=== PATIENT | male | born 1955 | race Two or more races ===

== ENCOUNTER 2025-02-05 16:30 | Inpatient (IN) | payer OTHER, MEDICARE ==
[~2025-02-05] VITALS: Ht 172.7 cm; Wt 94.0 kg
[2025-02-05 17:33] LABS: Hematocrit 43.3 % (41.0-53.0); Hemoglobin 15.1 g/dL (13.5-17.5); Mean Corpuscular Hemoglobin 31.8 pg (28.0-32.0); Mean Corpuscular Volume 91.0 fL (80.0-100.0); Nucleated Red Blood Cells % 0.0 %
[2025-02-05 17:40] LABS: Chloride 105 mmol/L (98-107); Potassium 4.2 mmol/L (3.5-5.1); Sodium 142 mmol/L (136-145)
[2025-02-05 17:41] LABS: Anion Gap 8 (5-15); Carbon Dioxide 29 mmol/L (20-31)
[2025-02-05 17:42] LABS: Calcium 9.9 mg/dL (8.7-10.4)
[2025-02-05 17:46] LABS: BUN/Creatinine Ratio 16.5 (10.0-20.0); Blood Urea Nitrogen 17 mg/dL (9-23)
--- NOTE | 2025-02-05 17:50 | DVH ---
CHEST RADIOGRAPH Indication: syncope Technique: Single frontal view of the chest was obtained Comparison: None FINDINGS: Lines and Tubes: None Lungs: No focal consolidation. Pleura: No effusion. No pneumothorax. Cardiomediastinal contours: Unremarkable Bones: No acute osseous abnormality. IMPRESSION: 1. No acute cardiopulmonary disease.
--- NOTE | 2025-02-05 17:54 | DVH ---
CLINICAL HISTORY: syncope TECHNIQUE: Helical scanning was performed of the head from the skull base to the vertex. Multiplanar reconstructions were performed. This exam was performed according to our departmental dose optimizat ion program. Up-to-date CT equipment and radiation dose reduction techniques are utilized as appropri ate. CTDI 62.2 DLP 1243 COMPARISON: None FINDINGS: There is no evidence for acute intracranial hemorrhage, acute ischemic changes, mass, mass effect, or extra-axial fluid collection. There is no hydrocephalus or midline shift. There is no effacement of the cerebral sulci and basal subarachnoid cisterns. The cox-white matter differentiation is well sasha ntained. The imaged paranasal sinuses are clear. IMPRESSION: NO ACUTE INTRACRANIAL ABNORMALITY SEEN.
--- NOTE | 2025-02-05 17:58 | ED.PDOC ---
HPI Comments This is a 70 year old male SRINIVASAA presenting to the ED with chief complaint of syncopal episode. EMS reports that the patient had been kneeling for an extended period of time at home, but when getting up an hour ago, he felt lightheaded and then passed out, falling backwards. Patient relays that he woke up on the floor with a right sided headache and called 911 for assistance. Patient denies any SOB, chest pain, dizziness, N/V, or further injury. Chief Complaint: Syncope Time Seen by MD: 17:00 Reviewed Notes: Nurses Notes, Database Analyst Notes, Medications, Allergies Allergies: Coded Allergies: NO KNOWN ALLERGIES (Unverified , 02/05/25) Information Source: Patient, Emergency Med Personnel Mode of Arrival: EMS Severity: Moderate Timing: Hours Duration: Since onset Prehospital treatment: None Associated Signs and Symptoms: Syncope Past Medical History PAST MEDICAL HISTORY: Denies Surgical History: Denies all surgeries Family History Family History: Reviewed,noncontributory to illness Social History Smoker: Non-Smoker Alcohol: Denies ETOH Use Drugs: Denies Drug Use Lives In: Home Constitutional: denies: chills, diaphoresis, fatigue, fever, malaise, sweats, weakness, others EENTM: denies: blurred vision, double vision, ear bleeding, ear discharge, ear drainage, ear pain, ear ringing, eye pain, eye redness, hearing loss, mouth pain, mouth swelling, nasal discharge, nose bleeding, nose congestion, nose pain, photophobia, tearing, throat pain, throat swelling, voice changes, others Respiratory: denies: cough, hemoptysis, orthopnea, SOB at rest, shortness of breath, SOB with excertion, stridor, wheezing, others Cardiovascular: reports: syncope; denies: chest pain, dizzy spells, diaphoresis, Dyspnea on exertion, edema, irregular heart beat, left arm pain, lightheadedness, palpitations, PND, others Gastrointestinal: denies: abdomen distended, abdominal pain, blood streaked bowels, constipated, diarrhea, dysphagia, difficulty swallowing, hematemesis, melena, nausea, poor appetite, poor fluid intake, rectal bleeding, rectal pain, vomiting, others Genitourinary: denies: burning, dysuria, flank pain, frequency, hematuria, incontinence, penile discharge, penile sore, pain, testicle pain, testicle swelling, urgency, others Neurological: reports: headache; denies: dizziness, fainting, left sided numbness, left sided weakness, numbness, paresthesia, pre-existing deficit, right sided numbness, right sided weakness, seizure, speech problems, tingling, tremors, weakness, others Musculoskeletal: denies: back pain, gout, joint pain, joint swelling, muscle pain, muscle stiffness, neck pain, others Integumetry: denies: bruises, change in color, change in hair/nails, dryness, laceration, lesions, lumps, rash, wounds, others Allergic/Immunocompromised: denies: Difficulty Healing, Frequent Infections, Hives, Itching, others Hematologic/Lymphatic: denies: anemia, blood clots, easy bleeding, easy bruising, swollen glands, others Endocrine: denies: excessive hunger, excessive sweating, excessive thirst, excessive urination, flushing, intolerance to cold, intolerance to heat, unexplained weight gain, unexplained weight loss, others Psychiatric: denies: anxiety, bipolar disorder, depression, hopeless, panic disorder, schizophrenia, sleepless, suicidal, others All Other Systems: Reviewed and Negative Physical Exam General Appearance: No Apparent Distress, Normal HEENT: Normal ENT Inspection, Pharynx Normal, TMs Normal Neck: Full Range of Motion, Non-Tender, Normal, Normal Inspection Respiratory: Chest Non-Tender, Lungs Clear, No Accessory Muscle Use, No Respiratory Distress, Normal Breath Sounds Cardiovascular: No Edema, No JVD, No Murmur, No Gallop, Normal Peripheral Pulses, Regular Rate/Rhythm Breast Exam: Deferred Gastrointestinal: No Organomegaly, Non Tender, No Pulsatile Mass, Normal Bowel Sounds, Soft Genitalia: Deferred Pelvic: Deferred Rectal: Deferred Extremities: No calf tenderness, Normal capillary refill, Normal inspection, Normal range of motion, Non-tender, No pedal edema Musculoskeletal : Apperance: Normal Neurologic: Alert, plate maker II-XII nml as Tested, No Motor Deficits, Normal Affect, Normal Mood, No Sensory Deficits Cerebellar Function: Normal Reflexes: Normal Skin: Dry, Normal Color, Warm Lymphatic: No Adenopathy Was a procedure done? Was a procedure done?: No CP Differential Dx Differential Diagnosis: MAT, TN, PAC's Differential Diagnosis: HTN Essential, HTN Accelerated Differential Diagnosis: Chest Wall Pain, Cholelithiasis, Gastritis, Myocardial Infarction, Pericarditis X-Ray, Labs, Meds, VS Vital Signs Date Time Temp Pulse Resp B/P (MAP) Pulse Ox O2 Delivery O2 Flow Rate FiO2 02/05/25 16:40 73 02/05/25 16:35 98.1 88 18 131/87 100 98.1 Lab Test 02/05/25 18:20 02/05/25 18:00 02/05/25 17:16 Range/Units Troponin I High Sensitivity 3 L 3 L </=54 ng/L Urine Color Yellow Yellow Urine Clarity Clear Clear Urine pH 5.5 5.0-9.0 Urine Specific [place] 1.025 1.001-1.035 Urine Protein Negative Negative Urine Ketones 1+ H Negative Urine Blood Negative Negative /uL Urine Nitrite Negative Negative Urine Bilirubin Negative Negative Urine Urobilinogen Normal Negative mg/dL Urine Leukocyte Esterase Negative Negative /uL Urine RBC 1 0 - 3 /hpf Urine Microscopic WBC 2 0-3 /HPF Urine Squamous Epithelial Cells None seen <5 /hpf Urine Bacteria None seen None Seen /hpf Urine Hyaline Casts Few 0 - 2 /lpf Urine Mucus Few None Seen Urine Glucose Normal Normal mg/dL White Blood Count 6.0 4.4-10.8 10^3/uL Red Blood Count 4.75 4.5-5.90 10^6/uL Hemoglobin 15.1 13.5-17.5 g/dL Hematocrit 43.3 41.0-53.0 % Mean Corpuscular Volume 91.0 80.0-100.0 fL Mean Corpuscular Hemoglobin 31.8 28.0-32.0 pg Mean Corpuscular Hemoglobin Concent 34.9 32.0-36.0 g/dL Red Cell Distribution Width 13.1 11.8-14.3 % Platelet Count 159 140-450 10^3/uL Mean Platelet Volume 7.5 6.9-10.8 fL Neutrophils (%) (Auto) 64.2 37.0-80.0 % Lymphocytes (%) (Auto) 22.8 10.0-50.0 % Monocytes (%) (Auto) 11.5 0.0-12.0 % Eosinophils (%) (Auto) 1.0 0.0-7.0 % Basophils (%) (Auto) 0.5 0.0-2.0 % Neutrophils # (Auto) 3.8 1.6-8.6 10 ^3/uL Lymphocytes # (Auto) 1.4 0.4-5.4 10 ^3/uL Monocytes # (Auto) 0.7 0-1.3 10 ^3/uL Eosinophils # (Auto) 0.1 0-0.8 10 ^3/uL Basophils # (Auto) 0 0-0.2 10 ^3/uL Nucleated Red Blood Cells 0.0 % Sodium Level 142 136-145 mmol/L Potassium Level 4.2 3.5-5.1 mmol/L Chloride Level 105 98-107 mmol/L Carbon Dioxide Level 29 20-31 mmol/L Anion Gap 8 5-15 Blood Urea Nitrogen 17 9-23 mg/dL Creatinine 1.03 0.700-1.30 mg/dL Glomerular Filtration Rate Calc 78 >90 mL/min BUN/Creatinine Ratio 16.5 10.0-20.0 Serum Glucose 110 H 74-106 mg/dL Calcium Level 9.9 8.7-10.4 mg/dL Time of 1ST Reevaluation: 18:00 Reevaluation 1ST: Unchanged Patient Education/Counseling: Diagnosis, Treatment Family Education/Counseling: No Family Present SEPSIS Sepsis Screen Date sepsis recognized/suspect: Feb 05, 2025 Time Sepsis recognized/suspect: 1626 Recent Procedure: No On Antibiotic Therapy: No Respiratory Rate >20: No Heart Rate >90: No Temp<36 C (96.8 F) or >38.3 C: No SBP <90 or MAP <65 mmHG: No New Acute Mental Status Change: No Is the patient on CPAP, BIPAP,: No Physician Orders Electrocardigram (02/05/25 16:43) Chest Portable (02/05/25 16:56) Head Without Contrast (02/05/25 16:56) Electrocardigram (02/05/25 16:56) Troponin-I Hs (02/05/25 19:56) Electrocardigram (02/05/25 17:56) Electrocardigram (02/05/25 19:56) Vital Signs Date Time Temp Pulse Resp B/P (MAP) Pulse Ox O2 Delivery O2 Flow Rate FiO2 02/05/25 16:40 73 02/05/25 16:35 98.1 88 18 131/87 100 98.1 Laboratory Tests Test 02/05/25 17:16 White Blood Count 6.0 10^3/uL (4.4-10.8) Departure 1 Departure Time of Disposition: 19:08 (Patient presented with syncope today and should be admitted. Data: 1. I ordered and reviewed the result of at least 3 labs including a CBC, BMP, and troponin. 2. I independently interpreted the following tests: EKG which shows a sinus arrhythmia and a chest x-ray which shows benign chest and a CT head which shows benign brain.Risk:This patient has a high risk of morbidity due to further diagnostic testing or treatment and may suffer from an acute cardiac, neurologic, or infectious disorder. Rationale: Patient should be admitted to the hospital for further management.) Impression: Primary Impression: Syncope and collapse Disposition: ADMITTED INPATIENT Admit to: Med Surg Condition: Serious Critical Care Note Critical Care Time?: No Stability Stability form required: No Heart Score Heart Score: Heart Score Response (Comments) Value History Highly Suspicious 2 EKG Normal 0 Age >65 2 Risk Factors No known risk factors 0 Troponin Normal limit 0 Total 4 I personally scribed for LUIS CHEN MD ([email or web address]) on 02/05/25 at 17:58. Electronically submitted by Tony Oneal ([email or web address]). LUIS CHEN MD Feb 05, 2025 17:58
[2025-02-05 18:37] LABS: Glucose 110 mg/dL (74-106)
[2025-02-05 18:54] LABS: Urine Protein, UAD Negative (Negative)
[2025-02-05] MEDS ORDERED: ONDANSETRON HCL 4 MG/2 ML VIAL IV PRN (22:30)
[2025-02-05] MEDS ORDERED: DOCUSATE SOD 100 MG CAP PO PRN (22:30)
[2025-02-05] MEDS ORDERED: ACETAMINOPHEN 325 MG TAB PO PRN (22:30)
--- NOTE | 2025-02-05 23:43 | DVHHP2 ---
History of Present Illness Reason for Visit: Syncope History of Present Illness The patient is a 70-year-old male who denies past medical history presented to [facility] ED with complaint of syncopal episode. As reported by EMS, the patient has been kneeling for an extended period of time at home, when he was trying to get up an hour later, he felt lightheadedness and then passed out, falling backwards. Patient reports that he woke up on the floor with right- sided headache and called 911 for assistance. Patient was seen and evaluated in the ED, laboratory data shows WBC 6.0, platelets 159, sodium 142, potassium 4.2, BUN 17, creatinine 1.03, glucose 110, calcium 9.9, troponin 3, blood pressure 131/87, heart rate 88, temperature 98.1 F, O2 saturation 99% on room air. Head CT showed no acute intracranial abnormality. Please see medication orders section in the computer. On my assessment, patient denied chest pain, no headache, no dizziness, no diaphoresis, no shortness of breaths, no loss of consciousness, no abdominal pain, no nausea, no vomiting, no fever, no chills. Patient was admitted for further evaluation and medical management. Past Medical History Denies past medical history Past Surgical History Denies all surgeries Family History Reviewed, noncontributory to the management of this case. Past Social History The patient lives at home, denies smoking, alcohol or illicit drugs abuse. Review of Systems Constitutional: Yes: Weakness; No: Fever, Chills, Sweats, Malaise, Other Eyes: No: Pain, Vision change, Conjunctivae inflammation, Eyelid inflammation, Other, Redness ENT: No: Ear pain, Ear discharge, Nose pain, Nose discharge, Nose congestion, Mouth pain, Mouth swelling, Throat pain, Throat swelling, Other Respiratory: No: Cough, Dry, Shortness of breath, SOB with excertion, Wheezing, Hemoptysis, Pleuritic Pain, Sputum, Wheezing, Other Cardiovascular: Other (Syncope); No: Chest Pain, Palpitations, Orthopnea, Paroxysmal Noc. Dyspnea, Edema, Lt Headedness Gastrointestinal: No: Nausea, Vomiting, Abdominal Pain, Diarrhea, Constipation, Melena, Hematochezia, Other Genitourinary: No Dysuria, No Frequency, No Incontinence, No Hematuria, No Retention, No Other Musculoskeletal: No: other, neck pain, shoulder pain, arm pain, back pain, hand pain, leg pain, foot pain Skin: No: Rash, Lesions, Jaundice, Bruising, Other Neurological: Other (Headache); No: Weakness, Numbness, Incoordination, Change in speech, Confusion, Seizures Allergies: Coded Allergies: NO KNOWN ALLERGIES (Unverified , 02/05/25) Medications Current Medications Medications Dose Ordered Sig/Zhao Route Start Time Stop Time Status Last Admin Dose Admin Sodium Chloride 10 ml Q8HR IV 02/06/25 06:00 Acetaminophen/ Hydrocodone Bitart 1 tab Q4HP PRN PO 02/05/25 22:30 Ondansetron HCl 4 mg Q4HP PRN IV 02/05/25 22:30 Docusate Sodium 100 mg BIDPRN PRN PO 02/05/25 22:30 Acetaminophen 650 mg Q6HP PRN PO 02/05/25 22:30 Exam Vital Signs Vital Signs Date Time Temp Pulse Resp B/P (MAP) Pulse Ox O2 Delivery O2 Flow Rate FiO2 02/05/25 16:40 73 02/05/25 16:35 98.1 18 131/87 100 98.1 General Appearance: Alert, Oriented X3, Cooperative, No acute distress HEENT: Atraumatic, PERRLA, EOMI, Mucous membr. moist/pink Respiratory: Normal air movement Cardiovascular: Regular rate, Normal S1, Normal S2, No murmurs Abdominal: Normal bowel sounds, Soft, No tenderness, No hepatospenomegaly, No masses Extremities: No cyanosis, No edema, Normal pulses, No tenderness/swelling Skin: No rashes, No breakdown, No significant lesion Neuro: Normal speech, Normal tone, Sensation intact, Cranial nerves 3-12 NL, Reflexes 2+, Other (Generalized weakness) Psych/Mental Status: Mental status NL, Mood NL Labs/Xrays Labs Test 02/05/25 20:01 02/05/25 18:00 02/05/25 17:16 Range/Units Troponin I High Sensitivity < 3 L </=54 ng/L Urine Color Yellow Yellow Urine Clarity Clear Clear Urine pH 5.5 5.0-9.0 Urine Specific [place] 1.025 1.001-1.035 Urine Protein Negative Negative Urine Ketones 1+ H Negative Urine Blood Negative Negative /uL Urine Nitrite Negative Negative Urine Bilirubin Negative Negative Urine Urobilinogen Normal Negative mg/dL Urine Leukocyte Esterase Negative Negative /uL Urine RBC 1 0 - 3 /hpf Urine Microscopic WBC 2 0-3 /HPF Urine Squamous Epithelial Cells None seen <5 /hpf Urine Bacteria None seen None Seen /hpf Urine Hyaline Casts Few 0 - 2 /lpf Urine Mucus Few None Seen Urine Glucose Normal Normal mg/dL White Blood Count 6.0 4.4-10.8 10^3/uL Red Blood Count 4.75 4.5-5.90 10^6/uL Hemoglobin 15.1 13.5-17.5 g/dL Hematocrit 43.3 41.0-53.0 % Mean Corpuscular Volume 91.0 80.0-100.0 fL Mean Corpuscular Hemoglobin 31.8 28.0-32.0 pg Mean Corpuscular Hemoglobin Concent 34.9 32.0-36.0 g/dL Red Cell Distribution Width 13.1 11.8-14.3 % Platelet Count 159 140-450 10^3/uL Mean Platelet Volume 7.5 6.9-10.8 fL Neutrophils (%) (Auto) 64.2 37.0-80.0 % Lymphocytes (%) (Auto) 22.8 10.0-50.0 % Monocytes (%) (Auto) 11.5 0.0-12.0 % Eosinophils (%) (Auto) 1.0 0.0-7.0 % Basophils (%) (Auto) 0.5 0.0-2.0 % Neutrophils # (Auto) 3.8 1.6-8.6 10 ^3/uL Lymphocytes # (Auto) 1.4 0.4-5.4 10 ^3/uL Monocytes # (Auto) 0.7 0-1.3 10 ^3/uL Eosinophils # (Auto) 0.1 0-0.8 10 ^3/uL Basophils # (Auto) 0 0-0.2 10 ^3/uL Nucleated Red Blood Cells 0.0 % Sodium Level 142 136-145 mmol/L Potassium Level 4.2 3.5-5.1 mmol/L Chloride Level 105 98-107 mmol/L Carbon Dioxide Level 29 20-31 mmol/L Anion Gap 8 5-15 Blood Urea Nitrogen 17 9-23 mg/dL Creatinine 1.03 0.700-1.30 mg/dL Glomerular Filtration Rate Calc 78 >90 mL/min BUN/Creatinine Ratio 16.5 10.0-20.0 Serum Glucose 110 H 74-106 mg/dL Calcium Level 9.9 8.7-10.4 mg/dL PATIENT: JOSELIN COBIAN ACCT: [id number] UNIT: [id number] : 1955 LOC: ER ROOM / BED: / AGE / SEX: 70 / M ADM STATUS: REG ER SERVICE 0911 ORDERING PHYSICIAN: LUIS CHEN MD PROCEDURE(s): HWOCT - HEAD WITHOUT CONTRAST REASON: syncope ORDER NUMBER(s): [id number], ACCESSION NUMBER(s): [id number] CLINICAL HISTORY: syncope TECHNIQUE: Helical scanning was performed of the head from the skull base to the vertex. Multiplanar reconstructions were performed. This exam was performed according to our departmental dose optimization program. Up-to-date CT equipment and radiation dose reduction techniques are utilized as appropriate. CTDI 62.2 DLP 1243 COMPARISON: None FINDINGS: There is no evidence for acute intracranial hemorrhage, acute ischemic changes, mass, mass effect, or extra-axial fluid collection. There is no hydrocephalus or midline shift. There is no effacement of the cerebral sulci and basal subarachnoid cisterns. The cox-white matter differentiation is well maintained. The imaged paranasal sinuses are clear. IMPRESSION: NO ACUTE INTRACRANIAL ABNORMALITY SEEN. ORDERING PHYSICIAN: LUIS CHEN MD PROCEDURE(s): CXRP - CHEST PORTABLE REASON: syncope ORDER NUMBER(s): [id number], ACCESSION NUMBER(s): [id number] CHEST RADIOGRAPH Indication: syncope Technique: Single frontal view of the chest was obtained Comparison: None FINDINGS: Lines and Tubes: None Lungs: No focal consolidation. Pleura: No effusion. No pneumothorax. Cardiomediastinal contours: Unremarkable Bones: No acute osseous abnormality. IMPRESSION: 1. No acute cardiopulmonary disease. SEPSIS Sepsis Screen Date sepsis recognized/suspect: Feb 05, 2025 Time Sepsis recognized/suspect: 1626 Recent Procedure: No On Antibiotic Therapy: No Respiratory Rate >20: No Heart Rate >90: No Temp<36 C (96.8 F) or >38.3 C: No SBP <90 or MAP <65 mmHG: No New Acute Mental Status Change: No Is the patient on CPAP, BIPAP,: No Physician Orders Electrocardigram (02/05/25 16:43) Chest Portable (02/05/25 16:56) Head Without Contrast (02/05/25 16:56) Electrocardigram (02/05/25 16:56) Electrocardigram (02/05/25 17:56) Electrocardigram (02/05/25 19:56) Allergies (02/05/25 22:19) Code Status (02/05/25 22:19) Sodium Chloride Lock (Saline Lock Ns) (02/06/25 06:00) Oxygen Per Hour (02/05/25 22:19) Hydrocodone-Acet 5/325mg Tab ([place] 5/32 (02/05/25 22:30) Ondansetron Hcl (Zofran) (02/05/25 22:30) Docusate Sodium Capsule (Colace Capsule) (02/05/25 22:30) Fall Risk Precautions In Place QSHIFT (02/05/25 22:19) Complete Blood Count (02/06/25 04:00) Comprehensive Metabolic Panel (02/06/25 04:00) Cardiac Diet-2gna,Lofat,Lochol (02/06/25 Breakfast) Condition: Serious (02/05/25 22:19) Acetaminophen Tablet (Tylenol Tablet) (02/05/25 22:30) Maintain Bed Rest (02/05/25 22:19) Sequential Compression Device (02/05/25 ) Vital Signs Date Time Temp Pulse Resp B/P (MAP) Pulse Ox O2 Delivery O2 Flow Rate FiO2 02/05/25 16:40 73 02/05/25 16:35 98.1 88 18 131/87 100 98.1 Laboratory Tests Test 02/05/25 17:16 White Blood Count 6.0 10^3/uL (4.4-10.8) Assessment/Plan Assessment/Plan Syncope and collapse Generalized weakness Plan 1. Admit to telemetry unit 2. Breathing treatment 3. Pain control management 4. Management of fluids and electrolytes 5. Consultation for hospitalist 6. Diagnostic tests head CT 7. DVT prophylaxis on SCDs 8. Repeat labs CBC, CMP in a.m. 9. Continue with current medical management 10. Treatment plan discussed with patient and RN. Patient verbalized understanding. Plan discussed with: Patient, Other (RN) My Orders Orders - NEELA MINER DNP Procedure Category Date Status Time Allergies ANDERSON 02/05/25 In Process 22:19 Code Status CODE 02/05/25 Transmitted 22:19 Sodium Chloride Lock PHA 02/06/25 In Process (Saline Lock Ns) 06:00 Oxygen Per Hour RT 02/05/25 Transmitted 22:19 Hydrocodone-Acet PHA 02/05/25 In Process 5/325mg Tab ([place] 22:30 Ondansetron Hcl PHA 02/05/25 In Process (Zofran) 22:30 Docusate Sodium PHA 02/05/25 In Process Capsule (Colace 22:30 Fall Risk Precautions ANDERSON 02/05/[address] 22:19 Complete Blood Count LAB 02/06/25 Verified 04:00 Comprehensive LAB 02/06/25 Verified Metabolic Panel 04:00 Cardiac DIET 02/06/25 Transmitted Diet-2gna,Lofat,Lochol Breakfast Condition: Serious ANDERSON 02/05/25 In Process 22:19 Acetaminophen Tablet PHA 02/05/25 In Process (Tylenol Tablet) 22:30 Maintain Bed Rest ANDERSON 02/05/25 In Process 22:19 Sequential ANDERSON 02/05/25 In Process Compression Device Problem List: (1) Syncope and collapse (2) Generalized weakness Date of Service: Feb 05, 2025 Billing Provider: NEELA MINER DNP Common Visit Codes: [id number] INP/OBS CARE (HIGH) NEELA MINER DNP Feb 05, 2025 23:43
[2025-02-05] MEDS ORDERED: MORPHINE SULFATE INJ 2 MG/ml SYRG IV PRN (23:45)
[2025-02-05] MEDS ORDERED: NITROGLYCERIN 0.4 MG SL TAB SL PRN (23:45)
[2025-02-06] VITALS (7 sets, daily range): BP systolic 112–128; BP diastolic 73–90; PULSE 57–81; RESP 16; TEMP 97.9–98.5; O2SAT 95–98
[2025-02-06] MEDS: HYDROcodone-ACET 5/325MG TAB PO PRN (03:08)
[2025-02-06] MEDS: SODIUM CHLOR 0.9% PF (SALINE LOCK) 10ML VIAL/SYR IV SCH (06:00)
[2025-02-06 06:03] LABS: Hematocrit 40.0 % (41.0-53.0); Hemoglobin 14.3 g/dL (13.5-17.5); Mean Corpuscular Hemoglobin 32.4 pg (28.0-32.0); Mean Corpuscular Volume 90.8 fL (80.0-100.0); Nucleated Red Blood Cells % 0.0 %
[2025-02-06 06:16] LABS: Alanine Aminotransferase 22 U/L (7-40); Albumin 4.3 g/dL (3.2-4.8); Alkaline Phosphatase 53 U/L (46-116); Anion Gap 7 (5-15); BUN/Creatinine Ratio 15.8 (10.0-20.0); Blood Urea Nitrogen 15 mg/dL (9-23); Calcium 9.4 mg/dL (8.7-10.4); Carbon Dioxide 30 mmol/L (20-31); Chloride 104 mmol/L (98-107); Glucose 89 mg/dL (74-106); Potassium 4.3 mmol/L (3.5-5.1); Sodium 141 mmol/L (136-145); Total Protein 6.6 g/dL (5.7-8.2)
[2025-02-06 06:17] LABS: Bilirubin, Total 0.7 mg/dL (0.2-1.0)
[2025-02-06 10:59] LABS: Hepatitis B Surface Antigen Negative (Negative); Hepatitis C Antibody Negative (Negative)
--- NOTE | 2025-02-06 11:32 | ECG ---
[facility] Test Date: 2025-02-05 Test Time: 16:36:17 Pat Name: JOSELIN COBIAN Department: Room: 0277T Gender: M [employer] Operator: MITZI : 1955 Requested By: LUIS CHEN Order Number: [id number] Reading MD: Braxton Olivares Measurements Intervals [place] Rate: 73 P: 44 FL: 193 QRS: -19 QRSD: 92 T: 22 QT: 384 QTc: 424 Interpretive Statements Sinus rhythm Borderline left axis deviation Low voltage, precordial leads Abnormal R-wave progression, early transition Electronically Signed On 02-09-2025 10:21:29 PDT by Braxton Olivares Please click the below link to view image of tracing.
--- NOTE | 2025-02-06 15:57 | DVHPN2 ---
Progress Note Date Seen: Feb 06, 2025 Medical Necessity Reason Pt with a Central, PICC or Fol: No Subjective Patient reports: Feels better Changes from previous H/P or p: No Changes Review of Systems: HEENT:Abnormal (Dizziness) Objective vital signs Vital Sign Date Time Temp Pulse Resp B/P (MAP) Pulse Ox O2 Delivery O2 Flow Rate FiO2 02/06/25 08:05 Room Air* 0 21 02/06/25 08:00 57 02/06/25 05:00 97.9 16 112/73 (86) 97 97.9 Total Intake and Output 02/05/25 02/05/25 02/06/25 15:00 23:00 07:00 Intake Total 0 ml Balance 0 ml medications Current Medications Medications Dose Ordered Sig/Zhao Route Start Time Stop Time Status Last Admin Dose Admin Sodium Chloride 10 ml Q8HR IV 02/06/25 06:00 Acetaminophen/ Hydrocodone Bitart 1 tab Q4HP PRN PO 02/05/25 22:30 02/06/25 11:50 1 TAB Ondansetron HCl 4 mg Q4HP PRN IV 02/05/25 22:30 Docusate Sodium 100 mg BIDPRN PRN PO 02/05/25 22:30 Acetaminophen 650 mg Q6HP PRN PO 02/05/25 22:30 Nitroglycerin 0.4 mg Q5MINP PRN SL 02/05/25 23:45 Morphine Sulfate 2 mg Q30M PRN IV 02/05/25 23:45 Examination: GENERAL:Normal, HEENT:Normal, LUNGS:Normal, CVS:Normal, ABDOMEN:Normal, MSK:Normal, NEURO:Abnormal (AO x3, strength and sensation intact. Persist dizziness) laboratory and microbiology Laboratory Tests 02/06/25 04:28 Test 02/06/25 04:28 Range/Units Serum Glucose 89 74-106 mg/dL Problem List/Assessment/Plan Problems(with codes): (1) Generalized weakness (2) Syncope and collapse Problem List/Assessment/Plan 1. Dizziness possible vertigo 2. Weakness CT head is negative Distended today when he was getting a he turned his head to see if he dizzy but GE feel that dizziness improved slightly Check brain MRI to rule out stroke Check echo of the heart assess for syncope Check carotid Doppler cirrhosis Neurology consult Neuro check per floor protocol Full code Lovenox for DVT prophylaxis No GI prophylaxis needed Regular diet Plan discussed with: Patient My Orders My Orders Orders - JUNIOR SCHMID MD Procedure Category Date Status Time Brain Head Wo Contrast MRI 02/06/25 Logged 15:53 Carotid Duplx W Color US 02/06/25 Logged DOP 15:53 Echo 2d Mode Cardiac US 02/06/25 Logged DOP 15:53 Neuro Checks Per Unit ORDERS 02/06/25 Transmitted Protocol 15:54 * Neurology Consult CONS 02/06/25 Transmitted 15:54 Date of Service: Feb 06, 2025 Billing Provider: JUNIOR SCHMID MD Common Visit Codes: [id number] INP/OBS CARE(HIGH) JUNIOR SCHMID MD Feb 06, 2025 15:57
[2025-02-06 16:53] LABS: Triglycerides 124.0 mg/dL (< 150)
[2025-02-06 16:54] LABS: Magnesium 2.0 mg/dL (1.6-2.6)
[2025-02-06 16:55] LABS: Cholesterol 192.0 mg/dL (< 200); HDL Cholesterol 45.0 mg/dL (40-59)
--- NOTE | 2025-02-06 17:01 | DVH ---
Ultrasound Carotid Arteries Indication: r/o stenosis Comparison: None Technique: Color and spectral Doppler waveform analysis of the bilateral carotid arteries is performe d. Measurements are based on NASCET criteria. Findings: PSV in the right CCA measures 75 cm/s. PSV in the right ICA measures 61 cm/s. The right ICA/CCA rat io is 0.8. PSV in the left CCA measures 56 cm/s. PSV in the left ICA measures 72 cm/s. The left ICA/CCA ratio is 1.3. Both vertebral arteries demonstrate antegrade flow. Impression: 1. No hemodynamically significant stenosis in either internal carotid artery. ABBREVIATIONS: PSV peak systolic velocity CCA common carotid artery ICA internal carotid artery
--- NOTE | 2025-02-06 17:39 | DVHINCON2 ---
Date Seen: Feb 06, 2025 Referring Physician MD Morales Reason for Consultation Syncope History of Present Illness This is a 70-year-old male patient who presents to the emergency room with chief complaint of syncopal episode. 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 He reports that when he went to stand up he instantly felt dizzy and the next thing he remembers is waking up on the floor. Does not know exactly how long he lost consciousness for. The patient reports hitting the back of his head. He was brought to the emergency room for further evaluation. Cardiology has been consulted at this time for syncopal episode. No twelve lead electrocardiogram seen in patient's hard chart on [facility]. Patient currently on telemetry monitoring which reveals normal sinus rhythm. Serial troponin levels have been negative. He denies any cardiac symptoms at time of assessment. Significant past medical history includes hyperlipidemia, liver cirrhosis, PTSD, anxiety, and depression. Past Medical History Past medical history reviewed. No other significant than mentioned above. Past Surgical History Cholecystectomy Liver cyst drainage Family History: Diabetes mellitus G8 MOTHER, , Onset:Unknown G8 BROTHER, Onset:Unknown G8 SISTER, Onset:Unknown Prostate carcinoma G8 BROTHER, Onset:Unknown Family History Family history reviewed. Social History Patient has a 10 pack-year history, quit smoking approximately 28 years ago Denies illicit drug use Denies alcohol use Allergies: Coded Allergies: NO KNOWN ALLERGIES (Unverified , 02/05/25) Home Meds Home medications reviewed. Current Medications Current Medications Medications (Trade) Dose Ordered Sig/Zhao Route PRN Reason Start Time Stop Time Status Last Admin Sodium Chloride (Saline Lock Ns) 10 ml Q8HR IV 02/06/25 06:00 Acetaminophen/ Hydrocodone Bitart ([place] 5/325MG Tab) 1 tab Q4HP PRN PO MODERATE PAIN (4-6 PAIN SCALE) 02/05/25 22:30 02/06/25 11:50 Ondansetron HCl (Zofran) 4 mg Q4HP PRN IV NAUSEA / VOMITING 02/05/25 22:30 Docusate Sodium (Colace Capsule) 100 mg BIDPRN PRN PO FOR CONSTIPATION 02/05/25 22:30 Acetaminophen (Tylenol Tablet) 650 mg Q6HP PRN PO PAIN SCALE 1-3 OR TEMP>100.4 02/05/25 22:30 Nitroglycerin (Ntrostat Sublingual) 0.4 mg Q5MINP PRN SL FOR CHEST PAIN 02/05/25 23:45 Morphine Sulfate 2 mg Q30M PRN IV FOR CHEST PAIN 02/05/25 23:45 Enoxaparin Sodium (Lovenox) 40 mg DAILY SC 02/07/25 10:00 Review of Systems Constitutional: No symptom reported Ears, Nose, & Throat: No symptom reported Eyes: No symptom reported Neurological: Syncope Pulmonary/Respiratory: No symptoms reported Cardiovascular: No symptom reported Gastrointestinal: No symptom reported Genitourinary: No symptom reported Musculoskeletal: No symptom reported Skin: No symptom reported Psychiatric: No symptom reported Endocrine: No symptom reported Hematologic/Lymphatic: No symptom reported Vital Signs Vital Signs Date Time Temp Pulse Resp B/P (MAP) Pulse Ox O2 Delivery O2 Flow Rate FiO2 02/06/25 08:05 Room Air* 0 21 02/06/25 08:00 57 02/06/25 05:00 97.9 16 112/73 (86) 97 97.9 Physical Exam General Appearance: Cooperative. Well-developed. Well-nourished. No acute distress. Pulmonary/Respiratory: Clear, bilateral breaths sounds. Cardiovascular/Chest: Regular rate and rhythm. Peripheral Pulses: 2+ Radial (R). 2+ Radial (L). 2+ Pedal (R). 2+ Pedal (L) Abdominal Exam: Normal bowel sounds. Ankle Exam: Negative ankle edema Lower extremities: Negative lower extremity edema Neuro/Mental Status: A/OX4, coherent. Thoughts/Psych: Normal thought pattern. Appropriate mood and affect. Good judgment and insight. Appearance: No acute distress. Skin Exam: Normal inspection. Normal color. Warm and dry. Labs/Diagnostic Data Labs Test 02/06/25 04:28 02/05/25 20:01 02/05/25 18:00 Range/Units White Blood Count 4.5 4.4-10.8 10^3/uL Red Blood Count 4.41 L 4.5-5.90 10^6/uL Hemoglobin 14.3 13.5-17.5 g/dL Hematocrit 40.0 L 41.0-53.0 % Mean Corpuscular Volume 90.8 80.0-100.0 fL Mean Corpuscular Hemoglobin 32.4 H 28.0-32.0 pg Mean Corpuscular Hemoglobin Concent 35.6 32.0-36.0 g/dL Red Cell Distribution Width 12.9 11.8-14.3 % Platelet Count 139 L 140-450 10^3/uL Mean Platelet Volume 7.5 6.9-10.8 fL Neutrophils (%) (Auto) 59.0 37.0-80.0 % Lymphocytes (%) (Auto) 25.3 10.0-50.0 % Monocytes (%) (Auto) 13.6 H 0.0-12.0 % Eosinophils (%) (Auto) 1.6 0.0-7.0 % Basophils (%) (Auto) 0.5 0.0-2.0 % Neutrophils # (Auto) 2.7 1.6-8.6 10 ^3/uL Lymphocytes # (Auto) 1.1 0.4-5.4 10 ^3/uL Monocytes # (Auto) 0.6 0-1.3 10 ^3/uL Eosinophils # (Auto) 0.1 0-0.8 10 ^3/uL Basophils # (Auto) 0 0-0.2 10 ^3/uL Nucleated Red Blood Cells 0.0 % Sodium Level 141 136-145 mmol/L Potassium Level 4.3 3.5-5.1 mmol/L Chloride Level 104 98-107 mmol/L Carbon Dioxide Level 30 20-31 mmol/L Anion Gap 7 5-15 Blood Urea Nitrogen 15 9-23 mg/dL Creatinine 0.95 0.700-1.30 mg/dL Glomerular Filtration Rate Calc 86 >90 mL/min BUN/Creatinine Ratio 15.8 10.0-20.0 Serum Glucose 89 74-106 mg/dL Hemoglobin A1c 6.3 H <5.7 % A1C Calcium Level 9.4 8.7-10.4 mg/dL Magnesium Level 2.0 1.6-2.6 mg/dL Total Bilirubin 0.7 0.2-1.0 mg/dL Aspartate Amino Transferase (AST) 39 13-40 U/L Alanine Aminotransferase (ALT) 22 7-40 U/L Alkaline Phosphatase 53 46-116 U/L Total Protein 6.6 5.7-8.2 g/dL Albumin 4.3 3.2-4.8 g/dL Triglycerides Level 124 < 150 mg/dL Cholesterol Level 192 < 200 mg/dL LDL Cholesterol 142 H < 100 mg/dL HDL Cholesterol 45 40-59 mg/dL Thyroid Stimulating Hormone (TSH) 1.62 0.55-4.78 uIU/mL Hepatitis B Surface Antigen Negative Negative Hepatitis C Antibody Negative Negative Troponin I High Sensitivity < 3 L </=54 ng/L Urine Color Yellow Yellow Urine Clarity Clear Clear Urine pH 5.5 5.0-9.0 Urine Specific [place] 1.025 1.001-1.035 Urine Protein Negative Negative Urine Ketones 1+ H Negative Urine Blood Negative Negative /uL Urine Nitrite Negative Negative Urine Bilirubin Negative Negative Urine Urobilinogen Normal Negative mg/dL Urine Leukocyte Esterase Negative Negative /uL Urine RBC 1 0 - 3 /hpf Urine Microscopic WBC 2 0-3 /HPF Urine Squamous Epithelial Cells None seen <5 /hpf Urine Bacteria None seen None Seen /hpf Urine Hyaline Casts Few 0 - 2 /lpf Urine Mucus Few None Seen Urine Glucose Normal Normal mg/dL Assessment Syncope, rule out cardiac etiology Rule out structural heart disease Hyperlipidemia Prediabetes History of lower cirrhosis History of tobacco use Obesity Plan/Recommendation We will continue with the following plan/recommendations (Dr. Franks): * Transthoracic echocardiogram to evaluate cardiac function * Bilateral carotid ultrasound * Orthostatic vital signs * Close Cardiac surveillance Thank you for allowing us to care for this patient. Please call with any questions or concerns. Critical care time spent: 44 minutes This medical document was created using an electronic medical record system with voice recognition software and computerized dictation system. Although this document has been carefully reviewed, there might still be some phonetic and typographical errors. Occasional wrong-word or ``sound-alike substitutions may have occurred due to the inherent limitations of voice recognition software. These areas are purely typographical due to imperfections of the software programs and do not reflect any compromise in the patient's medical care. Please read the chart carefully and recognize, using context, where these substitutions have occurred. Plan discussed with: Patient NYHA Physical activity limitations: NA Date of Service: Feb 06, 2025 Billing Provider: CHETAN BRIONES Cardiology Common Codes: 45394-LIMFLLF INP/OBS CARE (High) Cardiology Consultation Codes: 89193-[id number] CONSULT <45MIN CHETAN BRIONES Feb 06, 2025 17:39
--- NOTE | 2025-02-06 20:47 | DVH ---
EXAM: MRI BRAIN HEAD WO CONTRAST CLINICAL HISTORY: r/o stroke COMPARISON: CT head 02/05/2025 TECHNIQUE: Multiplanar, multisequence magnetic resonance imaging of the brain was performed after the administra tion of intravenous contrast. FINDINGS: Normal brain volume and formation. No hemorrhages, masses, mass effect, midline shift, herniation or cytotoxic edema following large vas cular territory. No intra-axial or extra-axial fluid collections. No evidence of hydrocephalus. The basal cisterns are patent. The vascular flow voids are maintained. The pituitary gland, sella and parasellar regions are unremarkable. The cerebellar tonsils are in nor mal position. The cerebellum is unremarkable. Right lens replacement. Otherwise orbits and globes are unremarkable. Minimal mucoperiosteal thicken ing of the ethmoid air cells. The remainder of the paranasal sinuses are clear. IMPRESSION: No evidence of acute intracranial abnormalities.
--- NOTE | 2025-02-06 22:32 | DVHINCON2 ---
Date of service: Feb 06, [address] Nielsen Reason for Consultation Persistent dizziness History of Present Illness Mr. Garcia is a 70 years old right-handed gentleman with a history of obesity, PTSD, anxiety, hepatitis, he was brought to the [facility] on 02/05/2025 with a chief company of syncopal event. At this time, he is alert and fully oriented, he provided the following history He has a history of dizziness spells in that he has lightheadedness, hot flushing, blurry vision when he is standing up fast. 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 This is his 1st passing out Orthostatic vitals on 02/06/2025 were unremarkable Coincidentally after the passing out on 02/05/2025, he has brief spells of dizziness/spinning sensation triggered by lying down, getting up from bed, bending/reason the head, but he has no similar symptoms on 02/06/25. He had no similar symptoms previously He snores, but not bad, he reports waking up in the night with headache in the last four months HbsAg 02/06/2025: Negative Hep C Ab, 02/06/2025: Negative CBC, 02/06/2025: Unremarkable CMP, 02/06/2025: Unremarkable TG/HDL/LDL/HDL, 02/06/2025: 124/192/142/45 TSH, 02/06/2025: 1.62 Carotid Doppler, 02/06/2025: No hemodynamically significant stenosis in either internal carotid artery. MRI head, 02/06/2025: No evidence of acute intracranial abnormalities Past Medical History Obesity, PTSD, anxiety, hepatitis Past Surgical History Cholecystectomy, liver sister drainage Family History: Diabetes mellitus G8 MOTHER, , Onset:Unknown G8 BROTHER, Onset:Unknown G8 SISTER, Onset:Unknown Prostate carcinoma G8 BROTHER, Onset:Unknown Family History Diabetes, prostatic cancer Social History He was a tobacco smoke, but denies a history of drug/alcohol abuse Allergies: Coded Allergies: NO KNOWN ALLERGIES (Unverified , 02/05/25) Current Medications Current Medications Medications (Trade) Dose Ordered Sig/Zhao Route PRN Reason Start Time Stop Time Status Last Admin Sodium Chloride (Saline Lock Ns) 10 ml Q8HR IV 02/06/25 06:00 Acetaminophen/ Hydrocodone Bitart ([place] 5/325MG Tab) 1 tab Q4HP PRN PO MODERATE PAIN (4-6 PAIN SCALE) 02/05/25 22:30 02/06/25 21:49 Ondansetron HCl (Zofran) 4 mg Q4HP PRN IV NAUSEA / VOMITING 02/05/25 22:30 Docusate Sodium (Colace Capsule) 100 mg BIDPRN PRN PO FOR CONSTIPATION 02/05/25 22:30 Acetaminophen (Tylenol Tablet) 650 mg Q6HP PRN PO PAIN SCALE 1-3 OR TEMP>100.4 02/05/25 22:30 Nitroglycerin (Ntrostat Sublingual) 0.4 mg Q5MINP PRN SL FOR CHEST PAIN 02/05/25 23:45 Morphine Sulfate 2 mg Q30M PRN IV FOR CHEST PAIN 02/05/25 23:45 Enoxaparin Sodium (Lovenox) 40 mg DAILY SC 02/07/25 10:00 Review of Systems As above, the other systems are negative Vital Signs Vital Signs Date Time Temp Pulse Resp B/P (MAP) Pulse Ox O2 Delivery O2 Flow Rate FiO2 02/06/25 21:00 98.5 75 16 112/78 (89) 95 98.5 121/83 (96) 128/90 (103) 02/06/25 08:05 Room Air* 0 21 Physical Exam GENERAL EXAM: General: the patient is well developed and nourished. No acute distress. HEENT: Normocephalic, neck is supple, no carotid bruits. No mass. RESPIRATORY: Normal respiratory effort with symmetrical lung expansion. Lungs clear to auscultation. CARDIOVASCULAR: Regular rate and rhythm with no murmurs. S1, S2. ABDOMEN: Soft, nontender, normal bowel sound NEUROLOGICAL: MENTAL STATUS: Awake and alert. Oriented to person, place, time and general circumstances. Able to give personal history. SPEECH, LANGUAGE, HIGHER CORTICAL FUNCTION: no aphasia or dysathria. CRANIAL NERVES: #2: Intact visual nava to confrontation. The optic discs were sharp. #3,4,6: Pupils are equal, round and reactive. EOMs full and conjugate. No nystagmus. #5: Facial sensation intact in all three divisions bilaterally. Mandibular strength intact. #7: Facial muscles symmetrical and strength intact. #8: Hearing grossly normal to voice. #9,10: Uvula and soft palate rise in the midline. Swallow and voice are normal. #11: Trapezius and sternomastoid strength intact bilaterally. #12: Tongue midline. No fasciculations or atrophy. SENSATION: Sensation to touch and pinprick is normal. MOTOR: Normal tone in the upper and lower extremity. Normal muscle bulk. No fasciculations. No abnormal movements or posturing. Muscle strength of the major groups in the upper extremities is 5/5. Muscle strength of the major groups in the lower extremities is 5/5. REFLEXES: Deep tendon reflexes normal and symmetrical. No pathological reflexe s. CEREBELLAR/COORDINATION: Finger to nose and heel to cobos are normal bilaterally. GAIT/STATION: deferred. Labs/Diagnostic Data Labs Test 02/06/25 04:28 02/05/25 20:01 02/05/25 18:00 Range/Units White Blood Count 4.5 4.4-10.8 10^3/uL Red Blood Count 4.41 L 4.5-5.90 10^6/uL Hemoglobin 14.3 13.5-17.5 g/dL Hematocrit 40.0 L 41.0-53.0 % Mean Corpuscular Volume 90.8 80.0-100.0 fL Mean Corpuscular Hemoglobin 32.4 H 28.0-32.0 pg Mean Corpuscular Hemoglobin Concent 35.6 32.0-36.0 g/dL Red Cell Distribution Width 12.9 11.8-14.3 % Platelet Count 139 L 140-450 10^3/uL Mean Platelet Volume 7.5 6.9-10.8 fL Neutrophils (%) (Auto) 59.0 37.0-80.0 % Lymphocytes (%) (Auto) 25.3 10.0-50.0 % Monocytes (%) (Auto) 13.6 H 0.0-12.0 % Eosinophils (%) (Auto) 1.6 0.0-7.0 % Basophils (%) (Auto) 0.5 0.0-2.0 % Neutrophils # (Auto) 2.7 1.6-8.6 10 ^3/uL Lymphocytes # (Auto) 1.1 0.4-5.4 10 ^3/uL Monocytes # (Auto) 0.6 0-1.3 10 ^3/uL Eosinophils # (Auto) 0.1 0-0.8 10 ^3/uL Basophils # (Auto) 0 0-0.2 10 ^3/uL Nucleated Red Blood Cells 0.0 % Sodium Level 141 136-145 mmol/L Potassium Level 4.3 3.5-5.1 mmol/L Chloride Level 104 98-107 mmol/L Carbon Dioxide Level 30 20-31 mmol/L Anion Gap 7 5-15 Blood Urea Nitrogen 15 9-23 mg/dL Creatinine 0.95 0.700-1.30 mg/dL Glomerular Filtration Rate Calc 86 >90 mL/min BUN/Creatinine Ratio 15.8 10.0-20.0 Serum Glucose 89 74-106 mg/dL Hemoglobin A1c 6.3 H <5.7 % A1C Calcium Level 9.4 8.7-10.4 mg/dL Magnesium Level 2.0 1.6-2.6 mg/dL Total Bilirubin 0.7 0.2-1.0 mg/dL Aspartate Amino Transferase (AST) 39 13-40 U/L Alanine Aminotransferase (ALT) 22 7-40 U/L Alkaline Phosphatase 53 46-116 U/L Total Protein 6.6 5.7-8.2 g/dL Albumin 4.3 3.2-4.8 g/dL Triglycerides Level 124 < 150 mg/dL Cholesterol Level 192 < 200 mg/dL LDL Cholesterol 142 H < 100 mg/dL HDL Cholesterol 45 40-59 mg/dL Thyroid Stimulating Hormone (TSH) 1.62 0.55-4.78 uIU/mL Hepatitis B Surface Antigen Negative Negative Hepatitis C Antibody Negative Negative Troponin I High Sensitivity < 3 L </=54 ng/L Urine Color Yellow Yellow Urine Clarity Clear Clear Urine pH 5.5 5.0-9.0 Urine Specific [place] 1.025 1.001-1.035 Urine Protein Negative Negative Urine Ketones 1+ H Negative Urine Blood Negative Negative /uL Urine Nitrite Negative Negative Urine Bilirubin Negative Negative Urine Urobilinogen Normal Negative mg/dL Urine Leukocyte Esterase Negative Negative /uL Urine RBC 1 0 - 3 /hpf Urine Microscopic WBC 2 0-3 /HPF Urine Squamous Epithelial Cells None seen <5 /hpf Urine Bacteria None seen None Seen /hpf Urine Hyaline Casts Few 0 - 2 /lpf Urine Mucus Few None Seen Urine Glucose Normal Normal mg/dL Assessment Passing out on 02/05/2025 Syncope Orthostatic hypotension Partial complex seizure, less likely Vertigo on 02/05/2025 Benign paroxysmal positional vertigo TIA/other central nervous system etiology, less likely Plan/Recommendation Monitoring Supportive treatment Telemetry Orthostatic vitals EEG MR head (unremarkable Syncope precautions Cardiology on case More recommendation per clinical course This medical document was created using an electronic medical record system with [employer] dictation system. Although this document has been carefully reviewed, there may still be some phonetic and typographical errors. These areas are purely typographical due to imperfections of the software programs, and do not reflect any compromise in the patient's medical care. Plan discussed with: Patient, Other ANANYA ALEMAN MD Feb 06, 2025 22:32
--- NOTE | 2025-02-06 23:59 | DVHINCON2 ---
Date Seen: Feb 06, 2025 Referring Physician MD Morales Reason for Consultation Syncope History of Present Illness This is a 70-year-old male with a past medical history of hyperlipidemia, liver cirrhosis, PTSD, anxiety, and depression who presents to the ED with a complaint of syncopal episode. 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 He reports that when he went to stand up he instantly felt dizzy and the next thing he remembers is waking up on the floor. Does not know exactly how long he lost consciousness for. The patient reports hitting the back of his head. He was brought to the ED for further evaluation. Cardiology has been consulted at this time for syncopal episode. No twelve lead electrocardiogram seen in patient's hard chart on [facility]. Patient currently on telemetry monitoring which reveals normal sinus rhythm. Serial troponin levels have been negative. He denies any cardiac symptoms at time of assessment. Chest x-ray shows NAD. Past Medical History past medical history reviewed. No other significant than mentioned above. Past Surgical History Cholecystectomy Liver cyst drainage Family History: Diabetes mellitus G8 MOTHER, , Onset:Unknown G8 BROTHER, Onset:Unknown G8 SISTER, Onset:Unknown Prostate carcinoma G8 BROTHER, Onset:Unknown Allergies: Coded Allergies: NO KNOWN ALLERGIES (Unverified , 02/05/25) Current Medications Current Medications Medications (Trade) Dose Ordered Sig/Zhao Route PRN Reason Start Time Stop Time Status Last Admin Sodium Chloride (Saline Lock Ns) 10 ml Q8HR IV 02/06/25 06:00 Acetaminophen/ Hydrocodone Bitart ([place] 5/325MG Tab) 1 tab Q4HP PRN PO MODERATE PAIN (4-6 PAIN SCALE) 02/05/25 22:30 02/06/25 11:50 Ondansetron HCl (Zofran) 4 mg Q4HP PRN IV NAUSEA / VOMITING 02/05/25 22:30 Docusate Sodium (Colace Capsule) 100 mg BIDPRN PRN PO FOR CONSTIPATION 02/05/25 22:30 Acetaminophen (Tylenol Tablet) 650 mg Q6HP PRN PO PAIN SCALE 1-3 OR TEMP>100.4 02/05/25 22:30 Nitroglycerin (Ntrostat Sublingual) 0.4 mg Q5MINP PRN SL FOR CHEST PAIN 02/05/25 23:45 Morphine Sulfate 2 mg Q30M PRN IV FOR CHEST PAIN 02/05/25 23:45 Enoxaparin Sodium (Lovenox) 40 mg DAILY SC 02/07/25 10:00 Review of Systems Constitutional: No symptom reported Ears, Nose, & Throat: No symptom reported Eyes: No symptom reported Neurological: Syncope Pulmonary/Respiratory: No symptoms reported Cardiovascular: No symptom reported Gastrointestinal: No symptom reported Genitourinary: No symptom reported Musculoskeletal: No symptom reported Skin: No symptom reported Psychiatric: No symptom reported Endocrine: No symptom reported Hematologic/Lymphatic: No symptom reported Vital Signs Vital Signs Date Time Temp Pulse Resp B/P (MAP) Pulse Ox O2 Delivery O2 Flow Rate FiO2 02/06/25 08:05 Room Air* 0 21 02/06/25 08:00 57 02/06/25 05:00 97.9 16 112/73 (86) 97 97.9 Physical Exam GENERAL: Alert and oriented x 3. No acute distress. EYES: PERRL, EOMI. Anicteric. HENT: Moist mucous membranes. LUNGS: Clear to auscultation bilaterally. CARDIOVASCULAR: Regular rate and rhythm. ABDOMEN: Soft, nontender and nondistended. EXTREMITIES: No edema. NEUROLOGIC: No focal neurological deficits. SKIN: Warm, dry. Labs/Diagnostic Data Labs Test 02/06/25 04:28 02/05/25 20:01 02/05/25 18:00 Range/Units White Blood Count 4.5 4.4-10.8 10^3/uL Red Blood Count 4.41 L 4.5-5.90 10^6/uL Hemoglobin 14.3 13.5-17.5 g/dL Hematocrit 40.0 L 41.0-53.0 % Mean Corpuscular Volume 90.8 80.0-100.0 fL Mean Corpuscular Hemoglobin 32.4 H 28.0-32.0 pg Mean Corpuscular Hemoglobin Concent 35.6 32.0-36.0 g/dL Red Cell Distribution Width 12.9 11.8-14.3 % Platelet Count 139 L 140-450 10^3/uL Mean Platelet Volume 7.5 6.9-10.8 fL Neutrophils (%) (Auto) 59.0 37.0-80.0 % Lymphocytes (%) (Auto) 25.3 10.0-50.0 % Monocytes (%) (Auto) 13.6 H 0.0-12.0 % Eosinophils (%) (Auto) 1.6 0.0-7.0 % Basophils (%) (Auto) 0.5 0.0-2.0 % Neutrophils # (Auto) 2.7 1.6-8.6 10 ^3/uL Lymphocytes # (Auto) 1.1 0.4-5.4 10 ^3/uL Monocytes # (Auto) 0.6 0-1.3 10 ^3/uL Eosinophils # (Auto) 0.1 0-0.8 10 ^3/uL Basophils # (Auto) 0 0-0.2 10 ^3/uL Nucleated Red Blood Cells 0.0 % Sodium Level 141 136-145 mmol/L Potassium Level 4.3 3.5-5.1 mmol/L Chloride Level 104 98-107 mmol/L Carbon Dioxide Level 30 20-31 mmol/L Anion Gap 7 5-15 Blood Urea Nitrogen 15 9-23 mg/dL Creatinine 0.95 0.700-1.30 mg/dL Glomerular Filtration Rate Calc 86 >90 mL/min BUN/Creatinine Ratio 15.8 10.0-20.0 Serum Glucose 89 74-106 mg/dL Hemoglobin A1c 6.3 H <5.7 % A1C Calcium Level 9.4 8.7-10.4 mg/dL Magnesium Level 2.0 1.6-2.6 mg/dL Total Bilirubin 0.7 0.2-1.0 mg/dL Aspartate Amino Transferase (AST) 39 13-40 U/L Alanine Aminotransferase (ALT) 22 7-40 U/L Alkaline Phosphatase 53 46-116 U/L Total Protein 6.6 5.7-8.2 g/dL Albumin 4.3 3.2-4.8 g/dL Triglycerides Level 124 < 150 mg/dL Cholesterol Level 192 < 200 mg/dL LDL Cholesterol 142 H < 100 mg/dL HDL Cholesterol 45 40-59 mg/dL Thyroid Stimulating Hormone (TSH) 1.62 0.55-4.78 uIU/mL Hepatitis B Surface Antigen Negative Negative Hepatitis C Antibody Negative Negative Troponin I High Sensitivity < 3 L </=54 ng/L Urine Color Yellow Yellow Urine Clarity Clear Clear Urine pH 5.5 5.0-9.0 Urine Specific [place] 1.025 1.001-1.035 Urine Protein Negative Negative Urine Ketones 1+ H Negative Urine Blood Negative Negative /uL Urine Nitrite Negative Negative Urine Bilirubin Negative Negative Urine Urobilinogen Normal Negative mg/dL Urine Leukocyte Esterase Negative Negative /uL Urine RBC 1 0 - 3 /hpf Urine Microscopic WBC 2 0-3 /HPF Urine Squamous Epithelial Cells None seen <5 /hpf Urine Bacteria None seen None Seen /hpf Urine Hyaline Casts Few 0 - 2 /lpf Urine Mucus Few None Seen Urine Glucose Normal Normal mg/dL Assessment Syncope, rule out cardiac etiology. Rule out structural heart disease. Hyperlipidemia. Prediabetes. History of lower cirrhosis. History of tobacco use. Obesity. Plan/Recommendation I agree with your ongoing assessment and care of plan. Patient has been seen by Celina Barr NP on my behalf, her and I discussed the plan with the patient. Transthoracic echocardiogram to evaluate cardiac function. Bilateral carotid ultrasound. Orthostatic vital signs. Close Cardiac surveillance. Additional plan as per the hospital course. Plan discussed with: Patient NYHA Physical activity limitations: NA Date of Service: Feb 06, 2025 Billing Provider: PATRIC BEE MD Cardiology Common Codes: 80602-NMCHFJT INP/OBS CARE (High) Cardiology Consultation Codes: [id number] CONSULT <45MIN PATRIC BEE MD Feb 06, 2025 18:29
[2025-02-07] VITALS (8 sets, daily range): BP systolic 108–145; BP diastolic 71–84; PULSE 61–82; RESP 16–20; TEMP 96.4–98.4; O2SAT 95–98
--- NOTE | 2025-02-07 08:38 | ECG ---
[facility] Test Date: 2025-02-07 Test Time: 08:36:27 Pat Name: JOSELIN COBIAN Department: Room: 0277T A Gender: M Tableau Analyst: SUSANA : 1955 Requested By: JUNIOR SCHMID Order Number: [id number] Reading MD: Braxton Olivares Measurements Intervals [place] Rate: 67 P: 29 GA: 201 QRS: -28 QRSD: 89 T: 46 QT: 374 QTc: 395 Interpretive Statements Sinus rhythm Borderline left axis deviation Electronically Signed On 02-09-2025 10:13:34 PDT by Braxton Olivares Please click the below link to view image of tracing.
[2025-02-07] MEDS: ENOXAPARIN SOD 40 MG/0.4 ML SYRINGE SC SCH (10:00)
[2025-02-07] MEDS ORDERED: MECLIZINE HCL 25 MG TAB PO PRN (12:30)
--- NOTE | 2025-02-07 17:46 | DVHPN2 ---
Progress Note Date Seen: Feb 07, 2025 Medical Necessity Reason Pt with a Central, PICC or Fol: No Subjective Patient reports: No new complaints Changes from previous H/P or p: No Changes Objective vital signs Vital Sign Date Time Temp Pulse Resp B/P (MAP) Pulse Ox O2 Delivery O2 Flow Rate FiO2 02/07/25 16:40 96.6 65 20 112/75 (87) 96 96.6 02/07/25 08:00 Room Air* 0 21 Total Intake and Output 02/06/25 02/06/25 02/07/25 15:00 23:00 07:00 Intake Total 740 ml Balance 740 ml medications Current Medications Medications Dose Ordered Sig/Zhao Route Start Time Stop Time Status Last Admin Dose Admin Sodium Chloride 10 ml Q8HR IV 02/06/25 06:00 Acetaminophen/ Hydrocodone Bitart 1 tab Q4HP PRN PO 02/05/25 22:30 02/07/25 14:02 1 TAB Ondansetron HCl 4 mg Q4HP PRN IV 02/05/25 22:30 Docusate Sodium 100 mg BIDPRN PRN PO 02/05/25 22:30 Acetaminophen 650 mg Q6HP PRN PO 02/05/25 22:30 Nitroglycerin 0.4 mg Q5MINP PRN SL 02/05/25 23:45 Morphine Sulfate 2 mg Q30M PRN IV 02/05/25 23:45 Enoxaparin Sodium 40 mg DAILY SC 02/07/25 10:00 Meclizine HCl 25 mg Q8HPRN PRN PO 02/07/25 12:30 Examination: GENERAL:Normal, HEENT:Normal, NECK:Normal, LUNGS:Normal, CVS:Normal, ABDOMEN:Normal, MSK:Normal, SKIN:Normal, NEURO:Normal, :Normal laboratory and microbiology Laboratory Tests 02/06/25 04:28 Test 02/06/25 04:28 Range/Units Serum Glucose 89 74-106 mg/dL Problem List/Assessment/Plan Problem List/Assessment/Plan 1. Dizziness possible vertigo 2. Weakness MRI negative for stroke Echo negative heart disease Greater Doppler negative for stenosis Neurology pressure. EEG Neuro check per floor protocol Check orthostatic hypotension cardiology appreciated Full code Lovenox for DVT prophylaxis No GI prophylaxis needed Regular diet Plan discussed with: Patient My Orders My Orders Orders - JUNIOR SCHMID MD Procedure Category Date Status Time Meclizine Tablet PHA 02/07/25 In Process (Antivert Tablet) 12:30 Orthostatic Vital ORDERS 02/07/25 Transmitted Signs 12:19 Eeg Awake/Sleep/Act EEG 02/07/25 Transmitted 12:20 Date of Service: Feb 07, 2025 Billing Provider: JUNIOR SCHMID MD Common Visit Codes: [id number] INP/OBS CARE(MOD) JUNIOR SCHMID MD Feb 07, 2025 17:46
--- NOTE | 2025-02-07 22:22 | DVHPN2 ---
Progress Note - Dictate Date Seen: Feb 07, 2025 Medical Necessity Reason Pt with a Central, PICC or Fol: No Subjective Mr. Garcia is a 70 years old right-handed gentleman with a history of obesity, PTSD, anxiety, hepatitis, he was brought to the [facility] on 02/05/2025 with a chief company of syncopal event. I have seen and examined the patient, he is alert and fully oriented, Orthostatic vitals on 02/06/2025, 02/07/2025 were unremarkable This morning, when he was pushing hard for bowel movement, he developed right eye pain, with spread to right side of the head, and later he developed pain in both side of the neck, on physical examination, there was no tenderness to palpation in the cervical spine Over the last four months of time, he has intermittent headache, typically he waking up in the night with pulsating headache, 8/10, which improved after he wakes up in the morning, but the "tense" persists throughout the day, but two weeks in 01/2025, the history was constant He snores, but not bad, he reports waking up in the night with headache in the last four months HbsAg 02/06/2025: Negative Hep C Ab, 02/06/2025: Negative CBC, 02/06/2025: Unremarkable CMP, 02/06/2025: Unremarkable TG/HDL/LDL/HDL, 02/06/2025: 124/192/142/45 TSH, 02/06/2025: 1.62 Carotid Doppler, 02/06/2025: No hemodynamically significant stenosis in either internal carotid artery. MRI head, 02/06/2025: No evidence of acute intracranial abnormalities vital signs Vital Sign Date Time Temp Pulse Resp B/P (MAP) Pulse Ox O2 Delivery O2 Flow Rate FiO2 02/07/25 21:00 97.1 78 20 113/81 (92) 98 97.1 115/78 (90) 108/75 (86) 02/07/25 20:00 Room Air* 0 21 Total Intake and Output 02/06/25 02/06/25 02/07/25 15:00 23:00 07:00 Intake Total 740 ml Balance 740 ml medications Current Medications Medications Dose Ordered Sig/Zhao Route Start Time Stop Time Status Last Admin Dose Admin Sodium Chloride 10 ml Q8HR IV 02/06/25 06:00 Acetaminophen/ Hydrocodone Bitart 1 tab Q4HP PRN PO 02/05/25 22:30 02/07/25 21:01 1 TAB Ondansetron HCl 4 mg Q4HP PRN IV 02/05/25 22:30 Docusate Sodium 100 mg BIDPRN PRN PO 02/05/25 22:30 Acetaminophen 650 mg Q6HP PRN PO 02/05/25 22:30 Nitroglycerin 0.4 mg Q5MINP PRN SL 02/05/25 23:45 Morphine Sulfate 2 mg Q30M PRN IV 02/05/25 23:45 Enoxaparin Sodium 40 mg DAILY SC 02/07/25 10:00 Meclizine HCl 25 mg Q8HPRN PRN PO 02/07/25 12:30 objective General: the patient is well developed and nourished. No acute distress. MENTAL STATUS: Subjective SPEECH, LANGUAGE, HIGHER CORTICAL FUNCTION: no aphasia or dysathria. CRANIAL NERVES: Pupils are equal, round and reactive. EOMs full and conjugate. No nystagmus. Facial sensation intact in all three divisions bilaterally. Mandibular strength intact. Facial muscles symmetrical and strength intact. Tongue midline. No fasciculations or atrophy. SENSATION: Sensation to touch and pinprick is normal. MOTOR: Normal tone in the upper and lower extremity. Normal muscle bulk. No fasciculations. No abnormal movements or posturing. Muscle strength of the major groups in the extremities is 5/5. REFLEXES: Deep tendon reflexes normal and symmetrical. No pathological reflexes. CEREBELLAR/COORDINATION: Finger to nose and heel to cobos are normal bilaterally. GAIT/STATION: deferred laboratory and microbiology Laboratory Tests 02/06/25 04:28 Test 02/06/25 04:28 Range/Units Serum Glucose 89 74-106 mg/dL Problem List Passing out on 02/05/2025 Syncope Orthostatic hypotension Partial complex seizure, less likely Vertigo on 02/05/2025 Benign paroxysmal positional vertigo TIA/other central nervous system etiology, less likely Headache, unknown etiology Assessment/Plan Monitoring Supportive treatment Telemetry Orthostatic vitals EEG Syncope precautions Cardiology on case More recommendation per clinical course This medical document was created using an electronic medical record system with Alma Johns dictation system. Although this document has been carefully reviewed, there may still be some phonetic and typographical errors. These areas are purely typographical due to imperfections of the software programs, and do not reflect any compromise in the patient's medical care Prognosis poor Plan discussed with: Patient, Other Total Time (mins): 40 ANANYA ALEMAN MD Feb 07, 2025 22:22
--- NOTE | 2025-02-07 23:07 | DVHPN2 ---
Progress Note - Dictate Date Seen: Feb 07, 2025 Medical Necessity Reason Pt with a Central, PICC or Fol: No Subjective Patient was seen and evaluated in follow up. Patient is complaining of a headache/dizziness. Orthostatic vitals on 02/06/2025, 02/07/2025 were WNL. Telemetry reviewed. vital signs Vital Sign Date Time Temp Pulse Resp B/P (MAP) Pulse Ox O2 Delivery O2 Flow Rate FiO2 02/07/25 21:00 97.1 78 20 113/81 (92) 98 97.1 115/78 (90) 108/75 (86) 02/07/25 20:00 Room Air* 0 21 Total Intake and Output 02/06/25 02/06/25 02/07/25 15:00 23:00 07:00 Intake Total 740 ml Balance 740 ml medications Current Medications Medications Dose Ordered Sig/Zhao Route Start Time Stop Time Status Last Admin Dose Admin Sodium Chloride 10 ml Q8HR IV 02/06/25 06:00 Acetaminophen/ Hydrocodone Bitart 1 tab Q4HP PRN PO 02/05/25 22:30 02/07/25 21:01 1 TAB Ondansetron HCl 4 mg Q4HP PRN IV 02/05/25 22:30 Docusate Sodium 100 mg BIDPRN PRN PO 02/05/25 22:30 Acetaminophen 650 mg Q6HP PRN PO 02/05/25 22:30 Nitroglycerin 0.4 mg Q5MINP PRN SL 02/05/25 23:45 Morphine Sulfate 2 mg Q30M PRN IV 02/05/25 23:45 Enoxaparin Sodium 40 mg DAILY SC 02/07/25 10:00 Meclizine HCl 25 mg Q8HPRN PRN PO 02/07/25 12:30 objective GENERAL: Alert and oriented x 3. No acute distress. EYES: PERRL, EOMI. Anicteric. HENT: Moist mucous membranes. LUNGS: Clear to auscultation bilaterally. CARDIOVASCULAR: Regular rate and rhythm. ABDOMEN: Soft, nontender and nondistended. EXTREMITIES: No edema. NEUROLOGIC: No focal neurological deficits. SKIN: Warm, dry. laboratory and microbiology Laboratory Tests 02/06/25 04:28 Test 02/06/25 04:28 Range/Units Serum Glucose 89 74-106 mg/dL Problem List Syncope, rule out cardiac etiology. Rule out structural heart disease. Hyperlipidemia. Prediabetes. History of lower cirrhosis. History of tobacco use. Obesity. Assessment/Plan Continued all current supportive medical care. Morphine and [place] for pain management. DVT prophylactics. IVFs. Additional plan as per the hospital course. Plan discussed with: Patient PATRIC BEE MD Feb 07, 2025 22:51
[2025-02-08 01:00] VITALS: BP 118/81; PULSE 72; RESP 20; TEMP 98; O2SAT 97
[2025-02-08 05:00] VITALS: BP 116/79; PULSE 111; RESP 17; TEMP 98; O2SAT 96
[2025-02-08 08:00] VITALS: PULSE 82; RESP 17
[2025-02-08 08:54] VITALS: BP 140/85; PULSE 73; RESP 20; TEMP 97.5; O2SAT 98
[2025-02-08 12:39] VITALS: BP 119/83; PULSE 62; RESP 20; TEMP 97.3; O2SAT 97
--- NOTE | 2025-02-08 15:15 | DVHDS2 ---
Discharge Summary Date of Admission Feb 05, 2025 at 23:42 Date of Discharge: Feb 08, 2025 Labs/Diagnostic Data: Laboratory Results Test 02/06/25 04:28 02/05/25 20:01 02/05/25 18:00 White Blood Count 4.5 10^3/uL (4.4-10.8) Red Blood Count 4.41 10^6/uL (4.5-5.90) Hemoglobin 14.3 g/dL (13.5-17.5) Hematocrit 40.0 % (41.0-53.0) Mean Corpuscular Volume 90.8 fL (80.0-100.0) Mean Corpuscular Hemoglobin 32.4 pg (28.0-32.0) Mean Corpuscular Hemoglobin Concent 35.6 g/dL (32.0-36.0) Red Cell Distribution Width 12.9 % (11.8-14.3) Platelet Count 139 10^3/uL (140-450) Mean Platelet Volume 7.5 fL (6.9-10.8) Neutrophils (%) (Auto) 59.0 % (37.0-80.0) Lymphocytes (%) (Auto) 25.3 % (10.0-50.0) Monocytes (%) (Auto) 13.6 % (0.0-12.0) Eosinophils (%) (Auto) 1.6 % (0.0-7.0) Basophils (%) (Auto) 0.5 % (0.0-2.0) Neutrophils # (Auto) 2.7 10 ^3/uL (1.6-8.6) Lymphocytes # (Auto) 1.1 10 ^3/uL (0.4-5.4) Monocytes # (Auto) 0.6 10 ^3/uL (0-1.3) Eosinophils # (Auto) 0.1 10 ^3/uL (0-0.8) Basophils # (Auto) 0 10 ^3/uL (0-0.2) Nucleated Red Blood Cells 0.0 % Sodium Level 141 mmol/L (136-145) Potassium Level 4.3 mmol/L (3.5-5.1) Chloride Level 104 mmol/L (98-107) Carbon Dioxide Level 30 mmol/L (20-31) Anion Gap 7 (5-15) Blood Urea Nitrogen 15 mg/dL (9-23) Creatinine 0.95 mg/dL (0.700-1.30) Glomerular Filtration Rate Calc 86 mL/min (>90) BUN/Creatinine Ratio 15.8 (10.0-20.0) Serum Glucose 89 mg/dL (74-106) Hemoglobin A1c 6.3 % A1C (<5.7) Calcium Level 9.4 mg/dL (8.7-10.4) Magnesium Level 2.0 mg/dL (1.6-2.6) Total Bilirubin 0.7 mg/dL (0.2-1.0) Aspartate Amino Transferase (AST) 39 U/L (13-40) Alanine Aminotransferase (ALT) 22 U/L (7-40) Alkaline Phosphatase 53 U/L (46-116) Total Protein 6.6 g/dL (5.7-8.2) Albumin 4.3 g/dL (3.2-4.8) Triglycerides Level 124 mg/dL (< 150) Cholesterol Level 192 mg/dL (< 200) LDL Cholesterol 142 mg/dL (< 100) HDL Cholesterol 45 mg/dL (40-59) Thyroid Stimulating Hormone (TSH) 1.62 uIU/mL (0.55-4.78) Hepatitis B Surface Antigen Negative (Negative) Hepatitis C Antibody Negative (Negative) Troponin I High Sensitivity < 3 ng/L (</=54) Urine Color Yellow (Yellow) Urine Clarity Clear (Clear) Urine pH 5.5 (5.0-9.0) Urine Specific [place] 1.025 (1.001-1.035) Urine Protein Negative (Negative) Urine Ketones 1+ (Negative) Urine Blood Negative /uL (Negative) Urine Nitrite Negative (Negative) Urine Bilirubin Negative (Negative) Urine Urobilinogen Normal mg/dL (Negative) Urine Leukocyte Esterase Negative /uL (Negative) Urine RBC 1 /hpf (0 - 3) Urine Microscopic WBC 2 /HPF (0-3) Urine Squamous Epithelial Cells None seen /hpf (<5) Urine Bacteria None seen /hpf (None Seen) Urine Hyaline Casts Few /lpf (0 - 2) Urine Mucus Few (None Seen) Urine Glucose Normal mg/dL (Normal) Other Laboratory Tests 02/06/25 04:28 Brief Hx & Hospital Course: The patient is a 70-year-old male who denies past medical history presented to [facility] ED with complaint of syncopal episode. As reported by EMS, the patient has been kneeling for an extended period of time at home, when he was trying to get up an hour later, he felt lightheadedness and then passed out, falling backwards. Patient reports that he woke up on the floor with right- sided headache and called 911 for assistance. Patient was seen and evaluated in the ED, laboratory data shows WBC 6.0, platelets 159, sodium 142, potassium 4.2, BUN 17, creatinine 1.03, glucose 110, calcium 9.9, troponin 3, blood pressure 131/87, heart rate 88, temperature 98.1 F, O2 saturation 99% on room air. Head CT showed no acute intracranial abnormality. MRI brain shows no acute stroke, EKG sinus rhythm patient seen Cardiology and Neurology. Echocardiogram than pertinent rate, EEG done. Pending read. Patient decided to wait one to leave AMA pain. Patient is aware overweight for possible [place] patient said AMA and left Condition at Discharge: Stable Final Diagnosis/Problems List Persistent headache stroke ruled out Presyncope Discharge Disposition: AMA Discharge Instruct/Medications Diet: Regular Activity: No Restrictions, As Tolerated Follow Up/Referral: Follow up with the PCP in one week. Follow with the Neurology in one week 55 Discharge Statement: "Patient was advised to return to the ER or call 911 if any headaches, dizziness, shortness of breath, chest pain, abdominal pain, bleeding, fevers, or worsening of medical condition. Patient was counseled about treatment plan, medications, possible side effects, patientverbalized understanding. All questions were answered to the best of my ability. This discharge took greater then 30 minutes in planning, reviewing documentation, counseling the patient, and discussing with other team members." ASSESSMENT ASSESSMENT Assessment Date of Service: Feb 08, 2025 Billing Provider: JUNIOR SCHMID MD Common Visit Codes: 27932-TEC/OBS DISCH DAY >30min JUNIOR SCHMID MD Feb 08, 2025 15:15
--- NOTE | 2025-02-08 18:15 | DVHSR ---
APPROVED REPORT EXAM: Two-dimensional and M-mode echocardiogram with Doppler and color Doppler. Blood Pressure: 122/74 mmHg INDICATION Syncope RISK FACTORS Height: 5' 8", Weight: 204 DIMENSIONS LVDd4.5 (3.8-5.7cm)LA (2D)3.7 (1.9-4.0cm)Aortic Root3.9 (2.0-3.7cm) LVDs3.2 (2.5-4.0cm)LA (MM) (1.9-4.0cm)Aortic Cusp Exc1.8 (1.5-2.0cm) EF (%) 55.0 (55-70%)Rt. Atrium3.6 (1.9-4.0cm)Asc. Aorta cm IVSd0.9 (0.7-1.1cm)RV (D) (1.8-2.4cm) PWd1.0 (0.7-1.1cm) Mitral Valve MitralMitral Stenosis E wave0.70m/sMV Mean GR.mmHg A wave0.80m/sMV Peak GR.mmHg E/A ratio0.92D MVAcm2 Aortic Valve Aortic ValveAortic Stenosis V10.80m/Bran Mean GR.2mmHg V20.90m/Bran Peak GR.3mmHg LVOT Diameter2.3 (1.8-2.4cm)Doppler AVA3.69cm2 AI P 1/2 Cuww081.88ms Conclusion LV EF IS 65% AND IS NORMAL NORMAL VALVES NORMAL RV FUNCTION NO EFFUSION
--- NOTE | 2025-02-08 22:34 | DVHPN2 ---
Progress Note - Dictate Date Seen: Feb 08, 2025 Medical Necessity Reason Pt with a Central, PICC or Fol: No Subjective Telemetry reviewed. vital signs Vital Sign Date Time Temp Pulse Resp B/P (MAP) Pulse Ox O2 Delivery O2 Flow Rate FiO2 02/08/25 12:39 97.3 62 20 119/83 (95) 97 97.3 02/08/25 08:00 Room Air* 0 21 Total Intake and Output 02/07/25 02/07/25 02/08/25 15:00 23:00 07:00 Intake Total 467 ml 800 ml 350 ml Balance 467 ml 800 ml 350 ml medications Current Medications Medications Dose Ordered Sig/Zhao Route Start Time Stop Time Status Last Admin Dose Admin Sodium Chloride 10 ml Q8HR IV 02/06/25 06:00 Acetaminophen/ Hydrocodone Bitart 1 tab Q4HP PRN PO 02/05/25 22:30 02/08/25 08:12 1 TAB Ondansetron HCl 4 mg Q4HP PRN IV 02/05/25 22:30 Docusate Sodium 100 mg BIDPRN PRN PO 02/05/25 22:30 Acetaminophen 650 mg Q6HP PRN PO 02/05/25 22:30 Nitroglycerin 0.4 mg Q5MINP PRN SL 02/05/25 23:45 Morphine Sulfate 2 mg Q30M PRN IV 02/05/25 23:45 Enoxaparin Sodium 40 mg DAILY SC 02/07/25 10:00 Meclizine HCl 25 mg Q8HPRN PRN PO 02/07/25 12:30 objective GENERAL: Alert and oriented x 3. No acute distress. EYES: PERRL, EOMI. Anicteric. HENT: Moist mucous membranes. LUNGS: Clear to auscultation bilaterally. CARDIOVASCULAR: Regular rate and rhythm. ABDOMEN: Soft, nontender and nondistended. EXTREMITIES: No edema. NEUROLOGIC: No focal neurological deficits. SKIN: Warm, dry. laboratory and microbiology Laboratory Tests 02/06/25 04:28 Test 02/06/25 04:28 Range/Units Serum Glucose 89 74-106 mg/dL Problem List Syncope, rule out cardiac etiology. Rule out structural heart disease. Hyperlipidemia. Prediabetes. History of lower cirrhosis. History of tobacco use. Obesity. Assessment/Plan Continued all current supportive medical care. Morphine and [place] for pain management. Additional plan as per the hospital course. Plan discussed with: Patient PATRIC BEE MD Feb 08, 2025 14:30
--- NOTE | 2025-02-10 00:03 | DVHEEG2 ---
Neurology EEG Procedural Note Procedural Note EXAM DATE: 02/07/2025 REFERRING DOCTOR: Dr. Aleman TECHNIQUE: Eighteen channels of EEG, 2 channels of EOG, and 1 channel of EKG were recorded using the International 10/20 system. CLINICAL DATA: The patient was referred for an EEG evaluation for the evidence of seizure disorder. MEDICATIONS: See the chart BACKGROUND ACTIVITY: While the patient was awake, the background activity consisted of well regulated 9-10 Hz rhythmic waveforms, symmetrically distributed over both posterior quadrants and was reactive to eye opening. ACTIVATION: Hyperventilation: Not done Photic Stimulation: Not done Sleep: Noticed IMPRESSION: This is a normal EEG. No focal, lateralized, or epileptiform features are noted. If clinically indicated to rule out a seizure disorder, recommend repeat EEG with sleep deprivation. The EKG channel showed a regular heart rate of 80/min[place] [address] ANANYA ALEMAN MD Feb 10, 2025 00:03
== END 2025-02-08 14:43 | disposition left against medical advice (07) | DRG 312 ==
LOC: EDBD 16:30 → ER 16:30 → OVERFLOW 23:42 → TELE-WESTW 02-06 02:41
PROVIDERS: ADMIT Internal Medicine; ATTEND Internal Medicine
DX: I95.1 Orthostatic hypotension (principal); H81.10 Benign paroxysmal vertigo, unspecified ear; R73.03 Prediabetes; E78.5 Hyperlipidemia, unspecified; E66.9 Obesity, unspecified; K74.60 Unspecified cirrhosis of liver; F43.10 Post-traumatic stress disorder, unspecified; F41.9 Anxiety disorder, unspecified; F32.A Depression, unspecified; Z53.29 Procedure and treatment not carried out because of patient's decision for other reasons; Z90.49 Acquired absence of other specified parts of digestive tract; Z83.3 Family history of diabetes mellitus; Z80.42 Family history of malignant neoplasm of prostate; Z87.891 Personal history of nicotine dependence; Z68.31 Body mass index [BMI] 31.0-31.9, adult
CPT/HCPCS: 36415; 70450; 70551; 71045; 80048; 80053; 80061; 81001; 83036; 83735; 84443; 84484; 85025; 86803; 87340; 93005; 93306; 93886; 95819; G0378